=== PATIENT | female | born 1980 | race American Indian/Alaskan Native ===

== ENCOUNTER 2019-10-30 16:28 | Emergency (ER) | payer MEDICAID ==
[2019-10-30 17:05] VITALS: BP 140/98; PULSE 100
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
[2019-10-30] MEDS ORDERED: Acetaminophen 325 MG Tab PO ONE (18:24)
--- NOTE | 2019-10-31 09:47 | CR ---
Ankle Min 3V Rt CLINICAL HISTORY: Fall, pain FINDINGS: The soft tissues are swollen over the medial malleolus. No acute fracture or dislocation is noted. Ankle mortise is intact. Articular surfaces are smooth. Impression: Soft tissue swelling No fracture or dislocation
== END 2019-10-30 18:40 | disposition home or self-care (01) ==
LOC: JP.ED 16:28
DX: S93.491A Sprain of other ligament of right ankle, initial encounter (principal); F32.9 Major depressive disorder, single episode, unspecified; Z79.899 Other long term (current) drug therapy; F17.210 Nicotine dependence, cigarettes, uncomplicated; W23.0XXA Caught, crushed, jammed, or pinched between moving objects, initial encounter
CPT/HCPCS: 73610; 99283; A9270